=== PATIENT | male | born 1980 | race American Indian/Alaskan Native ===

== ENCOUNTER 2016-12-04 09:27 | Emergency (ER) | payer SELFPAY ==
[2016-12-04] MEDS ORDERED: CATAPRES PO ONE (11:25)
--- NOTE | 2016-12-04 11:38 | Emergency Department Report ---
ED Medical Clearance HPI - General Chief complaint: Medical Clearance Stated complaint: inc bp out of meds Time Seen by Provider: 12/04/16 11:23 Source: patient Mode of arrival: Ambulatory - History of Present Illness -: Gradual (4d) Alledged Intoxication: No Compliant with Home Medications: No Traumatic Symptoms: denies traumatic injury Home medications: Previous Rx's Medication Instructions Recorded Last Taken Type Ibuprofen [Motrin] 800 mg PO TID PRN #30 tablet 08/25/14 Unknown Rx Penicillin Vk [Veetids TAB] 500 mg PO QID #40 tablet 08/25/14 Unknown Rx traMADol [Ultram 50 MG tab] 50 mg PO Q6HR PRN #14 tablet 08/25/14 Unknown Rx Amoxicillin [Trimox CAP] 500 mg PO BID #20 capsule 12/04/16 Unknown Rx amLODIPine [Norvasc] 5 mg PO DAILY #30 tab 12/04/16 Unknown Rx Allergies/Adverse reactions: Allergies Allergy/AdvReac Type Severity Reaction Status Date / Time No Known Allergies Allergy Verified 08/25/14 01:48 ED Review of Systems ROS: Stated complaint: DIZZINESS/ ELEVATED B/P Other details as noted in HPI Comment: Unobtainable due to pts medical conditions Constitutional: no symptoms reported, see HPI. denies: chills Eyes: as per HPI. denies: eye pain ENT: as per HPI. denies: ear pain, throat pain Respiratory: no symptoms reported, see HPI. denies: cough, orthopnea Cardiovascular: as per HPI. denies: chest pain, palpitations, dyspnea on exertion, orthopnea Endocrine: no symptoms reported, see HPI. denies: excessive sweating, flushing , intolerance to cold, intolerance to heat Gastrointestinal: as per HPI. denies: abdominal pain, nausea, vomiting Genitourinary: as per HPI. denies: urgency, dysuria Musculoskeletal: as per HPI. denies: back pain Skin: as per HPI, lesions (had a bump on left inner thigh. it has now resolved. ). denies: rash Neurological: as per HPI. denies: headache, weakness Psychiatric: as per HPI. denies: anxiety, depression Hematological/Lymphatic: as per HPI. denies: easy bleeding ED Past Medical Hx - Past Medical History Hx Hypertension: Yes - Surgical History Past Surgical History?: No - Social History Smoking Status: Current Every Day Smoker Substance Use Type: None - Medications Home Medications: Home Medications Medication Instructions Recorded Confirmed Last Taken Type Ibuprofen [Motrin] 800 mg PO TID PRN #30 tablet 08/25/14 Unknown Rx Penicillin Vk [Veetids TAB] 500 mg PO QID #40 tablet 08/25/14 Unknown Rx traMADol [Ultram 50 MG tab] 50 mg PO Q6HR PRN #14 tablet 08/25/14 Unknown Rx Amoxicillin [Trimox CAP] 500 mg PO BID #20 capsule 12/04/16 Unknown Rx amLODIPine [Norvasc] 5 mg PO DAILY #30 tab 12/04/16 Unknown Rx ED Physical Exam - General Limitations: No Limitations General appearance: alert - Head Head exam: Present: atraumatic - Eye Eye exam: Present: PERRL - ENT ENT exam: Present: normal exam, mucous membranes moist - Neck Neck exam: Present: normal inspection - Respiratory Respiratory exam: Present: normal lung sounds bilaterally - Cardiovascular Cardiovascular Exam: Present: regular rate - GI/Abdominal GI/Abdominal exam: Present: soft - Rectal Rectal exam: Present: deferred - Extremities Exam Extremities exam: Present: normal inspection - Back Exam Back exam: Present: normal inspection - Neurological Exam Neurological exam: Present: alert, oriented X3, CN II-XII intact, normal gait, reflexes normal. Absent: motor sensory deficit - Expanded Neurological Exam Expanded Patient oriented to: Present: person, place, time Speech: Present: fluid speech Cranial nerves: EOM's Intact: Normal, Gag Reflex: Normal, Tongue Deviation: Normal Motor strength exam: RUE: 5, LUE: 5, RLE: 5, LLE: 5 Best Eye Response (Simon): (4) open spontaneously Best Motor Response (Simon): (6) obeys commands Best Verbal Response (Lima): (5) oriented Lima Total: 15 - Psychiatric Psychiatric exam: Present: normal affect, normal mood - Skin Skin exam: Present: warm, dry, intact ED Course Vital Signs 12/04/16 12/04/16 12/04/16 09:57 11:52 11:53 Temperature 98.0 F 98.5 F Pulse Rate 109 H 84 Respiratory 16 Rate Blood Pressure 155/110 150/98 Blood Pressure [Right] O2 Sat by Pulse 99 100 Oximetry 12/04/16 12:51 Temperature 98 F Pulse Rate 94 H Respiratory 18 Rate Blood Pressure Blood Pressure 148/96 [Right] O2 Sat by Pulse 100 Oximetry - Reevaluation(s) Reevaluation #1: 12/04/16 12:24 out of bp meds for 4 days bp inc no cp or sob denies sánchez only on norvasc 5 mg po reports recent boil to thigh now gone discussed anbx. will give rx w instructions when/if to use ED Medical Decision Making - Differential Diagnosis htn; med non compliance ED Disposition Clinical Impression: Hypertension, Boil Disposition: DC- TO HOME OR SELFCARE Is pt being admited?: No Does the pt Need Aspirin: No Condition: Stable Instructions: Abscess (ED), Hypertension (ED) Additional Instructions: rest drink water no alcohol take meds as written follow up pcp low salt diet do not take amox unless the boil comes back, is red and painful Prescriptions: amLODIPine [Norvasc] 5 mg PO DAILY #30 tab Amoxicillin [Trimox CAP] 500 mg PO BID #20 capsule Referrals: NADEGE ROMANO MD [Staff Physician] - 3-5 Days Time of Disposition: 12:28
[2016-12-04 12:55] VITALS: BP 148/96
== END 2016-12-04 12:52 | disposition home or self-care (01) ==
LOC: ED 09:27
DX: L02.426 Furuncle of left lower limb (principal); I10 Essential (primary) hypertension; F17.200 Nicotine dependence, unspecified, uncomplicated
CPT/HCPCS: 99282

== ENCOUNTER 2017-11-08 11:41 | Emergency (ER) | payer SELFPAY ==
--- NOTE | 2017-11-08 13:27 | Emergency Department Report ---
Blank Doc - Documentation Documentation: Patient is a 37-year-old -[place] male who states for the past 2 weeks he says urinary frequency. Patient denies any dysuria or penile discharge or hematuria. Patient states she has some chronic left sided back pain states there has been some discomfort in the left lower quadrant. Patient denies any fevers chills diarrhea and nausea at this time. A focused physical exam patient has some mild tenderness to the left lower quadrant and left lower back. Patient had a urinalysis performed rule out infection or blood in the urine and also have a glucose done to rule out elevated blood sugar.
[2017-11-08] MEDS ORDERED: CATAPRES PO ONE (14:40)
--- NOTE | 2017-11-08 14:43 | Emergency Department Report ---
ED Back Pain/Injury HPI - General Chief Complaint: Medical Clearance Stated Complaint: HIGH BP Time Seen by Provider: 11/08/17 13:14 Source: patient Limitations: No Limitations - History of Present Illness Initial Comments: This is a 37-year-old -[place] male who presents with urinary frequency and urgency for 2 weeks. Past medical history of hypertension. Patient states he stopped taking medication months ago. He is also complaining of chronic low back pain worse on left side. He has not followed up with pain management. Patient states he always get prescriptions on discharge for flexeril and ibuprofen which is no longer helping pain. Patient states low back pain increased over the past 2 weeks. It is painful to bend. Patient states it feel like a muscle spasm when he bend forward. He is also states urinary frequency is interrupting sleep. He is waking at least 2-3 times during sleep. Patient denies dysuria, penile discharge, hematuria, fevers, chills, diarrhea , and nausea. MD Complaint: back pain (chronic low back pain) -: month(s) Similar Symptoms Previously: Yes Place: home Radiation: none Severity scale (0 -10): 6 Quality: aching Consistency: intermittent Improves With: none Worsens With: movement Context: bending Associated Symptoms: denies other symptoms Treatments Prior to Arrival: NSAIDS, other medications - Related Data Previous Rx's Medication Instructions Recorded Last Taken Type Ibuprofen [Motrin] 800 mg PO TID PRN #30 tablet 08/25/14 Unknown Rx Penicillin Vk [Veetids TAB] 500 mg PO QID #40 tablet 08/25/14 Unknown Rx traMADol [Ultram 50 MG tab] 50 mg PO Q6HR PRN #14 tablet 08/25/14 Unknown Rx Amoxicillin [Trimox CAP] 500 mg PO BID #20 capsule 12/04/16 Unknown Rx amLODIPine [Norvasc] 5 mg PO DAILY #30 tab 12/04/16 Unknown Rx Ciprofloxacin HCl [Cipro] 500 mg PO BID #4 tablet 11/08/17 Unknown Rx amLODIPine [Norvasc] 5 mg PO DAILY #30 tab 11/08/17 Unknown Rx Allergies Allergy/AdvReac Type Severity Reaction Status Date / Time No Known Allergies Allergy Verified 08/25/14 01:48 ED Review of Systems ROS: Stated complaint: HIGH BP Other details as noted in HPI Constitutional: denies: chills, fever Respiratory: denies: cough, shortness of breath, wheezing Cardiovascular: denies: chest pain, palpitations Gastrointestinal: denies: abdominal pain, nausea, vomiting, diarrhea Genitourinary: urgency, frequency. denies: dysuria Musculoskeletal: back pain (low back pain worse on left). denies: joint swelling, arthralgia Skin: denies: rash, lesions Neurological: denies: headache, weakness, numbness, paresthesias Psychiatric: denies: anxiety, depression ED Past Medical Hx - Past Medical History pancreatitis Family history: no significant family history ED Back Pain Physical Exam - Exam General: Vital signs noted. No distress. Alert and acting appropriately. Back/Abdomen: Yes Sacroiliac Tenderness (above left iliac joint), No Abdominal Tenderness, No Perithoracic Tenderness, No Perilumbar Tenderness, No Flank Tenderness, No Straight Leg Raise Pain Neuro: Yes Normal Sensation, Yes Normal DTR's, Yes Normal Gait, No Motor Weakness ED Course Vital Signs 11/08/17 11:48 Temperature 98.6 F Pulse Rate 88 Respiratory 16 Rate Blood Pressure 171/117 O2 Sat by Pulse 100 Oximetry Lab Results 11/08/17 Range/Units 13:40 Urine Color Yellow (Yellow) Urine Turbidity Clear (Clear) Urine pH 6.0 (5.0-7.0) Ur Specific [place] 1.020 (1.003-1.030) Urine Protein <15 mg/dl (Negative) mg/dL Urine Glucose (UA) Negative (Negative) mg/dL Urine Ketones Negative (Negative) mg/dL Urine Nitrite Negative (Negative) Ur Reducing Substances Not Reportable Urine Bilirubin Negative (Negative) Urine Ictotest Not Reportable Urine Urobilinogen < 2.0 (<2.0) mg/dL Ur Leukocyte Esterase Small (Negative) Urine WBC (Auto) 11.0 H (0.0-6.0) /HPF Urine RBC (Auto) 2.0 (0.0-6.0) /HPF U Epithel Cells (Auto) < 1.0 (0-13.0) /HPF Urine Mucus Few /HPF Lab Results 11/08/17 Range/Units 13:40 Urine Color Yellow (Yellow) Urine Turbidity Clear (Clear) Urine pH 6.0 (5.0-7.0) Ur Specific [place] 1.020 (1.003-1.030) Urine Protein <15 mg/dl (Negative) mg/dL Urine Glucose (UA) Negative (Negative) mg/dL Urine Ketones Negative (Negative) mg/dL Urine Nitrite Negative (Negative) Ur Reducing Substances Not Reportable Urine Bilirubin Negative (Negative) Urine Ictotest Not Reportable Urine Urobilinogen < 2.0 (<2.0) mg/dL Ur Leukocyte Esterase Small (Negative) Urine WBC (Auto) 11.0 H (0.0-6.0) /HPF Urine RBC (Auto) 2.0 (0.0-6.0) /HPF U Epithel Cells (Auto) < 1.0 (0-13.0) /HPF Urine Mucus Few /HPF Vital Signs 11/08/17 11/08/17 11:48 14:52 Temperature 98.6 F Pulse Rate 88 81 Respiratory 16 Rate Blood Pressure 171/117 170/100 O2 Sat by Pulse 100 Oximetry ED Medical Decision Making - Medical Decision Making This is a 37 y.o. male presents with chronic low back pain and urinary frequency for 2 weeks. Patient was examined by me and Dr. Chery. Rest medical history of hypertension. Patient is noncompliant with medication. He has been off amlodipine for several months. Blood pressure elevated and patient is in no acute distress. Patient given clonidine 0.1 mg po once in ER. Blood pressure is trending down. Obtained a urinalysis. There is some blood and leukocytes, will treat for acute cystitis with cipro and treat empirically for STD's. Follow-up with pain management or primary Doctor for chronic back pain management. Patient informed of results. Start amlodipine 5 mg po daily for hypertension. Plan discussed with patient to discharge home and treat outpatient. Patient discharged home in stable condition. Follow up with PCP in 2 -3 days. Critical care attestation.: If time is entered above; I have spent that time in minutes in the direct care of this critically ill patient, excluding procedure time. ED Disposition Clinical Impression: Acute cystitis with hematuria, Asymptomatic hypertension Hypertension Qualifiers: Hypertension type: essential hypertension Qualified Code(s): I10 - Essential ( primary) hypertension Chronic low back pain Qualifiers: Back pain laterality: left Sciatica presence: without sciatica Qualified Code(s ): M54.5 - Low back pain Disposition: - TO HOME OR SELFCARE Is pt being admited?: No Does the pt Need Aspirin: No Condition: Stable Instructions: Urinary Tract Infection in Men (ED), Hypertension (ED) Additional Instructions: Increased fluid intake to 1-2 L per day. Encourage stop smoking to reduce cardiovascular risk. Moderate caffeine consumption is acceptable. Begin and maintain aerobic exercise, with a goal of at least 30 minutes of moderate intensity, dynamic aerobic exercise (walking, jogging, cycling, or swimming) 5 days per week to total 150 minutes as tolerated or recommended by a physician. Take medication daily as prescribed. Follow up with Primary Care Provider in 1 week. Prescriptions: amLODIPine [Norvasc] 5 mg PO DAILY #30 tab Ciprofloxacin HCl [Cipro] 500 mg PO BID #4 tablet Referrals: [facility] [Outside] - 3-5 Days [facility] [Outside] - 3-5 Days [facility] [Outside] - 3-5 Days Forms: Work/School Release Form(ED) Time of Disposition: 15:11 Print Language: KITTITIAN
[2017-11-08 14:46] LABS: Mucus,Urine FEW /HPF
[2017-11-08 14:56] LABS: Color,Urine Yellow (Yellow)
[2017-11-08 14:57] LABS: Bilirubin,Urine Negative (Negative); Protein,Urine <15 mg/dL mg/dL (Negative)
[2017-11-08 14:58] LABS: Urobilinogen,Urine < 2.0 mg/dL (<2.0)
[2017-11-08] MEDS ORDERED: XYLOCAINE 1% MPF 5 mL INFILTRATI ONE (15:09)
[2017-11-08] MEDS ORDERED: ZITHROMAX PO ONE (15:09)
[2017-11-08] MEDS ORDERED: ROCEPHIN IM ONE (15:09)
[2017-11-08] MEDS ORDERED: XYLOCAINE 1% 20 mL ONE (15:54)
[2017-11-08 16:35] VITALS: BP 127/84
== END 2017-11-08 16:34 | disposition home or self-care (01) ==
LOC: ED 11:41
DX: N30.01 Acute cystitis with hematuria (principal); I10 Essential (primary) hypertension; M54.5 Low back pain; G89.29 Other chronic pain
CPT/HCPCS: 81001; 82962; 96372; 99283; J0696

== ENCOUNTER 2018-06-06 10:37 | Emergency (ER) | payer SELFPAY ==
[2018-06-06 10:55] VITALS: BP 157/107
[2018-06-06] MEDS ORDERED: IBUPROFEN PO ONE (11:36)
[2018-06-06] MEDS ORDERED: CLEOCIN PO ONE (11:36)
--- NOTE | 2018-06-06 12:06 | XRay Report ---
RIGHT HAND, 3 views: History: Pain and swelling Mild soft tissue swelling on the dorsum of the hand. No acute osseous findings or joint pathology is demonstrated. Chronic healed fracture of the fourth metacarpal is noted. IMPRESSION: Soft tissue swelling. No acute osseous injury. Healed fourth metacarpal fracture.
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
[2018-06-06] MEDS ORDERED: TRIPLE ANTIBIOTIC TP ONE ×2 (12:47)
== END 2018-06-06 12:50 | disposition home or self-care (01) ==
LOC: ED 10:37
DX: S66.911A Strain of unspecified muscle, fascia and tendon at wrist and hand level, right hand, initial encounter (principal); L03.113 Cellulitis of right upper limb; I10 Essential (primary) hypertension; F17.200 Nicotine dependence, unspecified, uncomplicated; Z79.899 Other long term (current) drug therapy; W51.XXXA Accidental striking against or bumped into by another person, initial encounter; Y93.89 Activity, other specified; Y92.89 Other specified places as the place of occurrence of the external cause; Y99.8 Other external cause status
CPT/HCPCS: 99283; A6250

== ENCOUNTER 2018-12-11 19:45 | Emergency (ER) | payer SELFPAY ==
[2018-12-11 20:18] VITALS: BP 146/83
== END 2018-12-11 22:50 | disposition left against medical advice (07) ==
LOC: ED 19:45
DX: Z04.1 Encounter for examination and observation following transport accident (principal); Z53.21 Procedure and treatment not carried out due to patient leaving prior to being seen by health care provider

== ENCOUNTER 2021-07-30 00:07 | Emergency (ER) | payer OTHER ==
[2021-07-30 00:40] VITALS: BP 190/119
[2021-07-30] MEDS ORDERED: ACETAMINOPHEN W/CODEINE 300-30 MG TAB PO ONE (02:05)
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
[2021-07-30] MEDS ORDERED: HYDROcodone/ACETAMINOPHEN 5-325 MG TAB PO ONE (04:11)
== END 2021-07-30 04:17 ==
LOC: ED 00:07
DX: S05.11XA Contusion of eyeball and orbital tissues, right eye, initial encounter (principal); I10 Essential (primary) hypertension; R04.0 Epistaxis; F17.200 Nicotine dependence, unspecified, uncomplicated; Z79.899 Other long term (current) drug therapy; Y04.8XXA Assault by other bodily force, initial encounter; Y93.89 Activity, other specified; Y92.89 Other specified places as the place of occurrence of the external cause; Y99.8 Other external cause status
CPT/HCPCS: 70450; 70486; 99284